=== PATIENT | male | born 1995 | race Caucasian/White ===

== ENCOUNTER 2020-01-02 10:08 | Emergency (ER) | payer SELFPAY ==
[~2020-01-02] VITALS: Ht 180.3 cm; Wt 116.0 kg
[2020-01-02 10:09] VITALS: BP 124/55
[2020-01-02] MEDS ORDERED: ASCO500 PO (10:15)
[2020-01-02] MEDS ORDERED: GLUC-148 PO (10:15)
== END 2020-01-02 11:06 | disposition home or self-care (01) ==
LOC: EMS 10:12
DX: Z03.818 Encounter for observation for suspected exposure to other biological agents ruled out (principal); F12.90 Cannabis use, unspecified, uncomplicated
CPT/HCPCS: 99283; U0003